=== PATIENT | female | born 1985 | race Caucasian/White ===

== ENCOUNTER → 2017-05-06 | Outpatient (CLI) | payer OTHER | END | disposition home or self-care (01) | LOC: RAD 13:42 | PROVIDERS: ATTEND Otolaryngology | DX: R22.1 Localized swelling, mass and lump, neck (principal); R13.10 Dysphagia, unspecified | CPT/HCPCS: 70491 ==

== ENCOUNTER 2017-11-03 13:04 | Emergency (ER) | payer OTHER ==
[~2017-11-03] VITALS: Ht 162.6 cm; Wt 65.1 kg
[2017-11-03 13:13] VITALS: BP 121/82
[2017-11-03] MEDS ORDERED: KETOROLAC 30 MG/1 ML ONE (14:34)
[2017-11-03] MEDS ORDERED: KETOROLAC 30 MG/1 ML IM ONE (15:00)
== END 2017-11-03 16:55 | disposition home or self-care (01) ==
LOC: ED 16:48
DX: S16.1XXA Strain of muscle, fascia and tendon at neck level, initial encounter (principal); S29.012A Strain of muscle and tendon of back wall of thorax, initial encounter; S46.912A Strain of unspecified muscle, fascia and tendon at shoulder and upper arm level, left arm, initial encounter; V89.2XXA Person injured in unspecified motor-vehicle accident, traffic, initial encounter; Y93.89 Activity, other specified; Y92.410 Unspecified street and highway as the place of occurrence of the external cause; Y99.8 Other external cause status
CPT/HCPCS: 72072; 72125; 73030; 96372; 99284; J1885